=== PATIENT | female | born 2005 | race African-American/Black ===

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

== ENCOUNTER 2024-09-02 06:52 | Observation (INO) | payer OTHER ==
[2024-09-02 07:31] VITALS: BP 129/94; PULSE 64; RESP 18; O2SAT 100
[2024-09-02 09:19] LABS: Amphetamine,Urine NEGATIVE (NEGATIVE); Barbiturate,Urine NEGATIVE (NEGATIVE); Benzodiazepine,Urine NEGATIVE (NEGATIVE); Cocaine,Urine NEGATIVE (NEGATIVE); Methadone,Urine NEGATIVE (NEGATIVE); Opiate,Urine NEGATIVE (NEGATIVE); PCP,Urine NEGATIVE (NEGATIVE); THC,Urine NEGATIVE (NEGATIVE)
== END 2024-09-02 08:49 | disposition home or self-care (01) ==
LOC: OB 06:52
PROVIDERS: ADMIT Family Medicine; ATTEND Family Medicine
DX: Z34.83 Encounter for supervision of other normal pregnancy, third trimester (principal); Z3A.39 39 weeks gestation of pregnancy
CPT/HCPCS: 80307; G0378; G0379

== ENCOUNTER 2024-09-02 11:47 | Inpatient (IN) | payer OTHER ==
[2024-09-02] MEDS ORDERED: XYLOCAINE 1% HCL 20 ML MDV IJ PRN (11:54)
[2024-09-02] MEDS ORDERED: Lactated Ringers 1,000 ML IV ONE (11:58)
[2024-09-02] MEDS ORDERED: PITOCIN 30 UNITS/ LR 500 ML 500 ML IV ONE (12:00)
[2024-09-02 12:13] LABS: Absolute Neutrophil Ct (ANC) 10.12 x10^3/uL (1.56-6.13); BASOPHIL % 0.3 % (0.1-1.2); Basophil (Absolute #) 0.04 x10^3/uL (0.01-0.08); Eosinophil (Absolute #) 0 x10^3/uL (0.04-0.36); Hematocrit 30.9 % (34.1-44.9); Hemoglobin 9.8 g/dL (11.2-15.7); IMMATURE GRAN # 0.07 x10^3u/L (0.001-0.031); IMMATURE GRAN % 0.6 % (0.001-0.429); Lymphocyte (Absolute #) 1.62 x10^3/uL (1.18-3.74); Lymphocytes % 12.8 % (19.3-51.7); Mean Cell Volume 74.5 fL (79.4-94.8); Mean Corpuscular Hemoglobin 23.6 pg (25.6-32.2); Mean Corpuscular Hgb Concent. 31.7 g/dL (32.2-35.5); Mean Platelet Volume 11.8 fL (9.4-12.3); Monocytes % 6.3 % (4.7-12.5); Platelet Count 200 x10^3/uL (182-369); Red Blood Count 4.15 x10^6/uL (3.93-5.22); Red Cell Distribution Width 14.8 % (11.7-14.4); White Blood Count 12.7 x10^3/uL (3.98-10.04)
[2024-09-02 13:11] LABS: ABO TYPING A; Antibody Screen NEGATIVE (NEGATIVE); RH TYPING POSITIVE
[2024-09-02] MEDS ORDERED: Dermoplast Spray TP PRN (13:13)
[2024-09-02] MEDS ORDERED: TYLENOL EXTRA STRENGTH 500 MG PO PRN (13:21)
[2024-09-02] MEDS ORDERED: LANSINOH 40 GM TOP PRN (13:21)
[2024-09-02] MEDS ORDERED: TUCKS TP PRN (15:18)
[2024-09-02] MEDS: Lactated Ringers 1,000 ML IV SCH (16:53)
[2024-09-02] MEDS: PITOCIN 30 UNITS/ LR 500 ML 30 UNITS/500 ML PLAST..BAG IV SCH (16:54)
[2024-09-02] MEDS: MOTRIN 400 MG PO PRN (20:00)
[2024-09-03 02:42] VITALS: O2SAT 99
[2024-09-03 06:53] LABS: Absolute Neutrophil Ct (ANC) 9.22 x10^3/uL (1.56-6.13); BASOPHIL % 0.2 % (0.1-1.2); Basophil (Absolute #) 0.03 x10^3/uL (0.01-0.08); Eosinophil % 0.5 % (0.7-5.8); Eosinophil (Absolute #) 0.06 x10^3/uL (0.04-0.36); Hematocrit 26.2 % (34.1-44.9); Hemoglobin 8.5 g/dL (11.2-15.7); IMMATURE GRAN # 0.09 x10^3u/L (0.001-0.031); IMMATURE GRAN % 0.7 % (0.001-0.429); Lymphocyte (Absolute #) 2.35 x10^3/uL (1.18-3.74); Mean Cell Volume 74.6 fL (79.4-94.8); Mean Corpuscular Hemoglobin 24.2 pg (25.6-32.2); Mean Corpuscular Hgb Concent. 32.4 g/dL (32.2-35.5); Mean Platelet Volume 11.6 fL (9.4-12.3); Monocyte (Absolute #) 1.31 x10^3/uL (0.24-0.86); Neutrophil % 70.6 % (34.0-71.1); Platelet Count 180 x10^3/uL (182-369); Red Blood Count 3.51 x10^6/uL (3.93-5.22); Red Cell Distribution Width 14.7 % (11.7-14.4); White Blood Count 13.1 x10^3/uL (3.98-10.04)
[2024-09-03] MEDS: Docusate Sodium 100 MG PO SCH (10:01)
[2024-09-03] MEDS: FERREX 150 PO SCH (10:01)
[2024-09-04 08:11] LABS: RPR Non Reactive (Non Reactive)
[2024-09-04 09:05] VITALS: BP 111/67; PULSE 77; RESP 18; TEMP 98.1
[2024-09-04 09:21] LABS: HBsAg Screen Negative (Negative)
[2024-09-04] MEDS ORDERED: CORTISONE 1% CREAM ONE (09:26)
[2024-09-04] MEDS: CORTISONE 1% CREAM TP PRN (09:28)
--- NOTE | 2024-09-04 10:06 | PCM.DS ---
Discharge Summary Date of Admission: 09/02/24 12:22 Admitting Physician: ANÍBAL GODINEZ Consults: Consults on Case 09/02/24 13:28 Navigation ONCE Primary Care Provider: ANÍBAL GODINEZ Allergies Allergies Xopenex Allergy (Uncoded 09/02/24 07:33) Hospital Summary - Hospital Course Hospital Course: patient had an uncomplicated vaginal delivery at term with Dr Brewster, no issues . mild lochia, valentin po and . doing great - Vitals & Intake/Output Vital Signs: Vital Signs Temperature 98.1 F 09/04/24 09:00 Pulse Rate 77 09/04/24 09:00 Respiratory Rate 18 09/04/24 09:00 Blood Pressure 111/67 09/04/24 09:00 O2 Sat by Pulse Oximetry 99 09/04/24 09:00 Intake & Output: Intake & Output 09/01/24 09/02/24 09/03/24 09/04/24 11:59 11:59 11:59 11:59 Intake Total 2500 Balance 2500 Weight 70.307 kg - Lab Result Diagrams: 09/03/24 06:38 Lab Results-Last 24 Hrs: Lab Results-Last 24 Hours 09/02/24 Range/Units 12:00 RPR Non Reactive (Non Reactive) Hep Bs Antigen Negative (Negative) Rubella IgG Antibody Pending Discharge Exam General Appearance: no apparent distress Neurologic Exam: alert, oriented x 3 Respiratory Exam: normal breath sounds, lungs clear, No respiratory distress Cardiovascular Exam: regular rate/rhythm, normal heart sounds Gastrointestinal/Abdomen Exam: soft, other (fundus firm) Extremity Exam: normal inspection, normal range of motion Skin Exam: normal color, warm, dry Final Diagnosis/Problem List - Final Discharge Diagnosis/Problem (1) Vaginal delivery Current Visit: Yes Status: Acute Code(s): O80 - ENCOUNTER FOR FULL-TERM UNCOMPLICATED DELIVERY (2) () Current Visit: Yes Status: Acute Code(s): Z78.9 - OTHER SPECIFIED HEALTH STATUS - Discharge Disposition: Home, Self-Care Condition: Stable Prescriptions: Continue Pnv No.95/Ferrous Fum/Folic AC [ Vitamins Tablet] 1 tab PO DAILY Valacyclovir HCl [Valacyclovir] 500 mg PO DAILY Follow up with: ANÍBAL GODINEZ MD [Primary Care Provider] - 6 weeks
[2024-09-04 12:07] LABS: Rubella Antibodies, IgG 2.08 index (Immune >0.99)
== END 2024-09-04 11:20 | disposition home or self-care (01) | DRG 807 ==
LOC: OB 11:47 → OBSVTOIN 12:22
PROVIDERS: ADMIT Family Medicine; ATTEND Family Medicine
PROC: 10E0XZZ Delivery of Products of Conception, External Approach (ICD-10-PCS; principal; 2024-09-02)
DX: O69.81X0 Labor and delivery complicated by cord around neck, without compression, not applicable or unspecified (principal); Z37.0 Single live birth; Z3A.39 39 weeks gestation of pregnancy
CPT/HCPCS: 36415; 80307; 85025; 86592; 86762; 86850; 86900; 86901; 87340; G0378; G0379; J2590; A9270-GY

== ENCOUNTER 2025-08-11 05:46 | Inpatient (IN) | payer OTHER ==
[2025-08-11] MEDS ORDERED: Zofran 4 MG/2 ML VIAL IV PRN (06:05)
[2025-08-11] MEDS ORDERED: XYLOCAINE 1% HCL 20 ML MDV IJ PRN (06:05)
[2025-08-11] MEDS: PITOCIN 30 UNITS/ LR 500 ML 30 UNITS/500 ML PLAST..BAG IV SCH (06:11)
[2025-08-11] MEDS: Lactated Ringers 1,000 ML IV SCH (06:11)
[2025-08-11 06:29] LABS: BASOPHIL % 0.3 % (0.1-1.2); Basophil (Absolute #) 0.03 x10^3/uL (0.01-0.08); Eosinophil (Absolute #) 0.07 x10^3/uL (0.04-0.36); Hematocrit 30.4 % (34.1-44.9); Hemoglobin 9.6 g/dL (11.2-15.7); IMMATURE GRAN # 0.10 x10^3u/L (0.001-0.031); IMMATURE GRAN % 1.1 % (0.001-0.429); Lymphocyte (Absolute #) 2.72 x10^3/uL (1.18-3.74); Mean Corpuscular Hemoglobin 24.1 pg (25.6-32.2); Mean Corpuscular Hgb Concent. 31.6 g/dL (32.2-35.5); Monocyte (Absolute #) 1.03 x10^3/uL (0.24-0.86); NUCLEATED RBC # 0.00 x10^3u/L (0.00-0.012); NUCLEATED RBC % 0.0 % (0.00-0.2); Platelet Count 178 x10^3/uL (182-369); Red Blood Count 3.98 x10^6/uL (3.93-5.22); White Blood Count 9.1 x10^3/uL (3.98-10.04)
[2025-08-11 08:00] LABS: ABO TYPING A; RH TYPING POSITIVE
[2025-08-11 08:17] LABS: Amphetamine,Urine NEGATIVE (NEGATIVE); Barbiturate,Urine NEGATIVE (NEGATIVE); Benzodiazepine,Urine NEGATIVE (NEGATIVE); Cocaine,Urine NEGATIVE (NEGATIVE); Methadone,Urine NEGATIVE (NEGATIVE); Opiate,Urine NEGATIVE (NEGATIVE); PCP,Urine NEGATIVE (NEGATIVE); THC,Urine POSITIVE (NEGATIVE)
[2025-08-11] MEDS ORDERED: Dulcolax 10 MG SUPP PR PRN (08:49)
[2025-08-11] MEDS ORDERED: Restoril 15 MG PO PRN (08:49)
[2025-08-11] MEDS ORDERED: CORTISONE 1% CREAM TP PRN (08:49)
[2025-08-11] MEDS: TUCKS TP PRN (09:51)
[2025-08-11] MEDS: LANSINOH 40 GM TOP PRN (09:51)
[2025-08-11] MEDS: Dermoplast Spray TP PRN (09:51)
[2025-08-11] MEDS: MOTRIN 400 MG PO PRN (11:57)
[2025-08-11] MEDS: Docusate Sodium 100 MG PO SCH (15:30)
[2025-08-11] MEDS: FERREX 150 PO SCH (15:31)
[2025-08-11] MEDS: TYLENOL EXTRA STRENGTH 500 MG PO PRN (16:40)
[2025-08-11 18:29] VITALS: O2SAT 97
[2025-08-12 05:02] LABS: BASOPHIL % 0.4 % (0.1-1.2); Basophil (Absolute #) 0.04 x10^3/uL (0.01-0.08); Eosinophil (Absolute #) 0.03 x10^3/uL (0.04-0.36); Hematocrit 28.5 % (34.1-44.9); Hemoglobin 9.0 g/dL (11.2-15.7); IMMATURE GRAN # 0.06 x10^3u/L (0.001-0.031); IMMATURE GRAN % 0.6 % (0.001-0.429); Lymphocyte (Absolute #) 2.70 x10^3/uL (1.18-3.74); Mean Corpuscular Hemoglobin 23.3 pg (25.6-32.2); Mean Corpuscular Hgb Concent. 31.6 g/dL (32.2-35.5); Monocyte (Absolute #) 1.09 x10^3/uL (0.24-0.86); NUCLEATED RBC # 0.00 x10^3u/L (0.00-0.012); NUCLEATED RBC % 0.0 % (0.00-0.2); Platelet Count 169 x10^3/uL (182-369); Red Blood Count 3.86 x10^6/uL (3.93-5.22); White Blood Count 10.4 x10^3/uL (3.98-10.04)
--- NOTE | 2025-08-12 09:05 | PCM.DS ---
Discharge Summary Date of Admission: 08/11/25 05:46 Admitting Physician: ANÍBAL GODINEZ Consults: Consults on Case 08/11/25 08:50 Notify Physician ROUTINE 08/11/25 12:22 Navigation ONCE Primary Care Provider: ANÍBAL GODINEZ Allergies Allergies Xopenex Allergy (Uncoded 09/02/24 07:33) Hospital Summary - Hospital Course Hospital Course: 19 yo arrived in spont labor at 38+wks and progressed and delivered vaginally with no complications. mild lochia, well. no problems or concerns - Vitals & Intake/Output Vital Signs: Vital Signs Temperature 97.9 F 08/12/25 02:00 Pulse Rate 56 L 08/12/25 02:00 Respiratory Rate 17 08/12/25 02:00 Blood Pressure 124/65 08/12/25 02:00 O2 Sat by Pulse Oximetry 97 08/12/25 02:00 Intake & Output: Intake & Output 08/09/25 08/10/25 08/11/25 08/12/25 11:59 11:59 11:59 11:59 Weight 70.307 kg - Lab Result Diagrams: 08/12/25 04:40 Lab Results-Last 24 Hrs: Lab Results-Last 24 Hours 08/11/25 08/11/25 08/12/25 Range/Units 13:39 17:36 04:40 WBC 10.4 H (3.98-10.04) x10^3/uL RBC 3.86 L (3.93-5.22) x10^6/uL Hgb 9.0 L (11.2-15.7) g/dL Hct 28.5 L (34.1-44.9) % MCV 73.8 L (79.4-94.8) fL MCH 23.3 L (25.6-32.2) pg MCHC 31.6 L (32.2-35.5) g/dL RDW 15.3 H (11.7-14.4) % Plt Count 169 L (182-369) x10^3/uL MPV 12.3 (9.4-12.3) fL Gran % 62.3 (34.0-71.1) % Immature Gran % (Auto) 0.6 H (0.001-0.429) % Nucleat RBC Rel Count 0.0 (0.00-0.2) % Eos # (Auto) 0.03 L (0.04-0.36) x10^3/uL Immature Gran # (Auto) 0.06 H (0.001-0.031) x10^3u/L Absolute Lymphs (auto) 2.70 (1.18-3.74) x10^3/uL Absolute Monos (auto) 1.09 H (0.24-0.86) x10^3/uL Absolute Nucleated RBC 0.00 (0.00-0.012) x10^3u/L Lymphocytes % 25.9 (19.3-51.7) % Monocytes % 10.5 (4.7-12.5) % Eosinophils % 0.3 L (0.7-5.8) % Basophils % 0.4 (0.1-1.2) % Absolute Granulocytes 6.50 H (1.56-6.13) x10^3/uL Basophils # 0.04 (0.01-0.08) x10^3/uL POC Glucometer 79 71 L (74 to 106) mg/dL - Procedures and Test Procedures and Tests throughout Hospitalization: Therapy Orders & Screens 08/11/25 11:27 Standby ROUTINE Comment: Diagnosis: ITP Discharge Exam General Appearance: no apparent distress Neurologic Exam: alert, oriented x 3 Respiratory Exam: normal breath sounds, lungs clear, No respiratory distress Cardiovascular Exam: regular rate/rhythm, normal heart sounds Gastrointestinal/Abdomen Exam: soft, other (fundus firm), No tenderness, No mass Extremity Exam: normal inspection, normal range of motion Skin Exam: normal color, warm, dry Final Diagnosis/Problem List - Final Discharge Diagnosis/Problem (1) Vaginal delivery Current Visit: No Status: Acute Assessment & Plan: patient is doing great, well bonded with male and is going well, mom requesting early discharge due to other son at home, she [place] [address] from [address] hospital and has no problem returning for 48 hour followup weight/bili with baby boy. Code(s): O80 - ENCOUNTER FOR FULL-TERM UNCOMPLICATED DELIVERY (2) () Current Visit: No Status: Acute Code(s): Z78.9 - OTHER SPECIFIED HEALTH STATUS - Discharge Disposition: Home, Self-Care Condition: Stable Prescriptions: Continue Pnv No.95/Ferrous Fum/Folic AC [ Vitamins Tablet] 1 tab PO DAILY Valacyclovir HCl [Valacyclovir] 500 mg PO DAILY PRN PRN PRN Reason: breakouts Follow up with: ANÍBAL GODINEZ MD [Primary Care Provider, FAMILY PRACTICE] - 6 weeks
[2025-08-12 10:02] VITALS: BP 118/63; PULSE 65; RESP 18; TEMP 97.6
[2025-08-13 15:31] LABS: RPR Non Reactive (Non Reactive)
== END 2025-08-12 15:25 | disposition home or self-care (01) | DRG 807 ==
LOC: OBSVTOIN 05:46 → OB 05:46
PROVIDERS: ADMIT Family Medicine; ATTEND Family Medicine
PROC: 10E0XZZ Delivery of Products of Conception, External Approach (ICD-10-PCS; principal; 2025-08-11)
DX: O80 Encounter for full-term uncomplicated delivery (principal); Z37.0 Single live birth; Z3A.38 38 weeks gestation of pregnancy